=== PATIENT | female | born 1990 | race Caucasian/White ===

== ENCOUNTER 2016-12-16 18:51 | Emergency (ER) | payer OTHER ==
[~2016-12-16] VITALS: Ht 165.1 cm; Wt 60.8 kg
[2016-12-16 21:52] VITALS: BP 117/61
== END 2016-12-16 21:53 | disposition home or self-care (01) ==
LOC: ED 18:51
DX: J20.9 Acute bronchitis, unspecified (principal)
CPT/HCPCS: J7512

== ENCOUNTER 2017-01-07 14:35 | Emergency (ER) | payer OTHER ==
[2017-01-07 19:08] VITALS: BP 128/74
== END 2017-01-07 19:08 | disposition home or self-care (01) ==
LOC: ED 14:35
DX: S29.011A Strain of muscle and tendon of front wall of thorax, initial encounter (principal); X58.XXXA Exposure to other specified factors, initial encounter; Y93.89 Activity, other specified; Y92.89 Other specified places as the place of occurrence of the external cause; Y99.8 Other external cause status

== ENCOUNTER 2020-01-05 10:49 | Emergency (ER) | payer BC ==
[~2020-01-05] VITALS: Ht 165.1 cm; Wt 69.4 kg
[2020-01-05 11:57] VITALS: BP 127/62
== END 2020-01-05 11:57 | disposition left against medical advice (07) ==
LOC: ED 10:49
DX: O42.92 Full-term premature rupture of membranes, unspecified as to length of time between rupture and onset of labor (principal)